=== PATIENT | female | born 1960 | race Two or more races ===

== ENCOUNTER 2018-08-15 04:33 | Emergency (ER) | payer MEDICAID ==
[~2018-08-15] VITALS: Ht 162.6 cm; Wt 99.3 kg
[~2018-08-15 04:33] MED LIST: ESOM40CA39; METO-281; TRIA25CA
[2018-08-15 04:52] VITALS: BP 142/96
== END 2018-08-15 07:52 | disposition home or self-care (01) ==
LOC: ER 04:33
DX: R05 Cough (principal); J45.909 Unspecified asthma, uncomplicated; K21.9 Gastro-esophageal reflux disease without esophagitis; E78.5 Hyperlipidemia, unspecified; I10 Essential (primary) hypertension; Z86.39 Personal history of other endocrine, nutritional and metabolic disease
CPT/HCPCS: 71046

== ENCOUNTER 2024-08-18 09:02 | Day surgery (SDC) | payer MEDICAID ==
[2024-08-16 11:13] LABS: Urine Bacteria None Seen /hpf (None Seen)
[2024-08-16 11:17] LABS: Basophils # (auto) 0.1 10 ^3/uL (0-0.2); Basophils % (auto) 0.9 % (0.0-2.0); Eosinophils # (auto) 0.2 10 ^3/uL (0-0.8); Hematocrit 37.9 % (36.0-46.0); Hemoglobin 12.5 g/dL (12.2-16.2); Lymphocytes # (auto) 1.9 10 ^3/uL (0.4-5.4); Lymphocytes % (auto) 28.2 % (10.0-50.0); Mean Corpuscular Hemoglobin 27.7 pg (28.0-32.0); Mean Corpuscular Volume 83.9 fL (80.0-100.0); Monocytes # (auto) 0.5 10 ^3/uL (0-1.3); Monocytes % (auto) 8.1 % (0.0-12.0); Neutrophils % (auto) 59.8 % (37.0-80.0); Platelet Count (auto) 304 10^3/uL (140-450); Red Blood Cells 4.52 10^6/uL (4.0-5.20); Red Cell Distribution Width 15.2 % (11.8-14.3); White Blood Cell 6.7 10^3/uL (4.4-10.8)
[2024-08-16 11:39] LABS: INR 0.96 (0.9-1.15); Partial Thromboplastin Time 26.8 SEC (24.5-34.5); Prothrombin Time 10.2 sec (9.3-11.8)
[2024-08-16 11:51] LABS: Urine Blood Negative /uL (Negative); Urine Clarity Clear (Clear); Urine Color Yellow (Yellow); Urine Mucus FEW (None Seen); Urine Protein, UAD Negative (Negative); Urine Squamous Epithelial Cell FEW /hpf (<5); Urine Urobilinogen Normal (Negative); Urine WBC 1 /HPF (0-5); Urine pH 5.5 (5.0-9.0)
[2024-08-16 12:23] LABS: Alanine Aminotransferase 23 U/L (7-40); Albumin 4.7 g/dL (3.2-4.8); Alkaline Phosphatase 88 U/L (46-116); Anion Gap 8 (5-15); Aspartate Aminotransferase 18 U/L (13-40); BUN/Creatinine Ratio 16.1 (10.0-20.0); Bilirubin, Total 0.4 mg/dL (0.2-1.0); Blood Urea Nitrogen 14 mg/dL (9-23); Calcium 10.2 mg/dL (8.7-10.4); Carbon Dioxide 27 mmol/L (20-31); Chloride 105 mmol/L (98-107); Potassium 4.1 mmol/L (3.5-5.1); Sodium 140 mmol/L (136-145); Total Protein 7.2 g/dL (5.7-8.2)
[2024-08-16 12:37] LABS: Glucose 112 mg/dL (74-106)
[~2024-08-18] VITALS: Ht 167.6 cm; Wt 99.8 kg
[~2024-08-18 09:02] MED LIST changes: +ALBU2TAB11 PO; +ASPI1TAB20 PO; +BECL40AE11 IN; +DOCU-94 PO; +ERGO400T PO; -ESOM40CA39; +LEVO88TA4 PO; +LOSA-534 PO; +METF500S3 PO; -METO-281; +SIMV5TAB14 PO; -TRIA25CA
[2024-08-18] MEDS ORDERED: MIDAZOLAM HCL 2MG/2ML 2ml VIAL (1mg/ml) ONE (13:06)
[2024-08-18] MEDS ORDERED: fentaNYL CITRATE 100 MCG/2 ML VL ONE (13:06)
[2024-08-18] MEDS ORDERED: PROPOFOL 10 MG/ML 20 ML IV ONE (13:07)
[2024-08-18] MEDS ORDERED: ONDANSETRON HCL 4 MG/2 ML VIAL ONE (13:07)
[2024-08-18] MEDS ORDERED: LIDOCAINE 2% (LOCAL ANESTH.) PF 5ml SDV ONE (13:07)
[2024-08-18] MEDS ORDERED: GLYCOPYRROLATE 0.2 MG/ML 1ML VIAL ONE (13:07)
--- NOTE | 2024-08-18 13:11 | DVHHP2 ---
GI H&P Pre-Op Assessment Date: 08/18/24 Chief complaint: Epigastric pain and nausea and vomiting. Positive fit test and blood stool. HPI: per clinic note Past medical history: per clinic note Past surgical history: per clinic note Family history: per clinic note Physical exam: General: NAD, AAOX3 HEENT: PERRL, no scleral icterus, normal hearing, gums without lesions or bleeding, oropharynx clear without erythema or exudate. Neck: Supple without enlargement of the thyroid, or lymphadenopathy. Chest: Normal size and shape, no tenderness, lung rush clear to auscultation and percussion, nonlabored breathing. Heart: RRR, no murmur Abdomen: non-distended, no tenderness to palpation, +BS, no hepatosplenomegaly Extremities: no edema Neurological: CN II-XII intact, sensation intact in all extremities, 5+ strength in all extremities Skin: No rashes, No jaundice Assessment: -Epigastric pain and nausea and vomiting. Positive fit test and blood stool. Plan: - EGD - Colonoscopy - Risks (bleeding, infection, perforation, reaction to sedation medications and cardiopulmonary arrest) and benefit of the procedure were explained to patient. Patient agrees to undergo the procedure. BECKY GAMBOA MD Aug 18, 2024 13:11
[2024-08-18 14:01] VITALS: TEMP 97.7; O2SAT 100
--- NOTE | 2024-08-18 14:02 | DVHOP2 ---
Operative Report DATE OF OPERATION: 08/18/24 PROCEDURE: Upper Endoscopy. PREOPERATIVE INDICATION: The patient is a 64 -year-old female undergoing endoscopy for epigastric pain, nausea and vomiting. POSTOPERATIVE DIAGNOSES: 1. Duodenitis in the bulb. 2. Gastritis PROCEDURE PERFORMED BY: Dawit Marquez SCOPE: Olympus videoendoscope. ASA CLASS: 3 PREOPERATIVE MEDICATIONS: MAC with Dr Davies PROCEDURE IN DETAIL: After obtaining an informed consent, the patient was placed on left lateral decubitus position. The patient was then sedated with the above medications. A bite block was placed between her teeth. The endoscope was then passed through the oropharynx, into the esophagus, and through the stomach and pylorus up to the second and third part of the duodenum. There was duodenitis in the duodenal bulb. There was gastritis. Gastric bi opsy obtained using cold forceps. The GE junction was normal in appearance at 35 cm. The esophagus was normal in appearance. The endoscope was then withdrawn. The patient tolerated the procedure well without difficulty. COMPLICATIONS : None SPECIMENS: Gastric biopsies DISPOSITION: D/C to home PLAN: 1. Await for biopsy result DAWIT MARQUEZ MD Aug 18, 2024 14:02
--- NOTE | 2024-08-18 14:04 | DVHOP2 ---
Operative Report DATE OF OPERATION: 08/18/24 PROCEDURE: Colonoscopy. PREOPERATIVE INDICATION: The patient is a 64 -year-old female undergoing colonoscopy for blood in the stool positive fit test POSTOPERATIVE DIAGNOSES: 1. 4 mm descending colon polyp was removed with hot snare and retrieved. 2. Proctitis. 3. Colonoscope only reached the right colon due to tortuous colon. PROCEDURE PERFORMED BY: Dawit Marquez M.D. SCOPE: Olympus videocolonoscope. ASA CLASS: 3 PREOPERATIVE MEDICATIONS: MAC with Dr Davies PROCEDURE IN DETAIL: After obtaining an informed consent, the patient was placed on left lateral decubitus position. She was then sedated with the above medications. A rectal examination was performed that was normal. The colonoscope was then passed through the anus into the rectosigmoid and through the descending, transverse, and to the ascending colon. The colonoscope could not be advanced further despite multiple manipulation due to the tortuous colon. There was a 4 mm descending colon polyp was removed with hot snare and retrieved. There was proctitis. Rectal biopsies were obtained with cold biopsy forceps. The colonoscope was then withdrawn. The patient tolerated the procedure well without difficulty. WITHDRAWAL TIME: 7 minutes QUALITY OF THE PREP: [place] Bowel Prep score: 5 COMPLICATIONS : None SPECIMENS: Colon polyp, rectal biopsies DISPOSITION: D/C to home PLAN: 1. Repeat colonoscopy base on biopsy result DAWIT MARQUEZ MD Aug 18, 2024 14:04
--- NOTE | 2024-08-18 14:05 | DVHDS2 ---
Physician Discharge Progress N Final Diagnosis: Gastritis, duodenitis Colon polyp, proctitis Operations or Procedures: Operations or Procedures EGD with biopsy Colonoscopy with snare polypectomy and biopsy Condition on Discharge: Good Disposition: Home Discharge Instructions: Diet: Regular Activity: No Restrictions, As Tolerated Medications: Resume with previous home medication Follow Up Care: Discharge Statement: "Patient was advised to return to the ER or call 911 if any headaches, dizziness, shortness of breath, chest pain, abdominal pain, bleeding, fevers, or worsening of medical condition. Patient was counseled about treatment plan, medications, possible side effects, patientverbalized understanding. All questions were answered to the best of my ability. This discharge took greater then 30 minutes in planning, reviewing documentation, counseling the patient, and discussing with other team members." BECKY GAMBOA MD Aug 18, 2024 14:05
[2024-08-18] MEDS ORDERED: ACCU-CHEK COMFORT CURVE STRIP VI ONE (14:15)
[2024-08-18] MEDS ORDERED: HYDROmorphone HCL 2 MG/ML VL/or syr IV PRN (14:15)
[2024-08-18 14:25] VITALS: BP 120/85; PULSE 89; RESP 16; O2SAT 95
== END 2024-08-18 14:35 | disposition home or self-care (01) ==
LOC: GI 09:02
PROVIDERS: ATTEND Internal Medicine Gastroenterology
DX: R19.5 Other fecal abnormalities (principal); K63.5 Polyp of colon; K51.20 Ulcerative (chronic) proctitis without complications; K29.50 Unspecified chronic gastritis without bleeding; K62.89 Other specified diseases of anus and rectum; R10.13 Epigastric pain; R11.2 Nausea with vomiting, unspecified; K29.70 Gastritis, unspecified, without bleeding; K29.80 Duodenitis without bleeding; I10 Essential (primary) hypertension; J45.909 Unspecified asthma, uncomplicated; E11.9 Type 2 diabetes mellitus without complications; E03.9 Hypothyroidism, unspecified; Z79.84 Long term (current) use of oral hypoglycemic drugs; Z79.890 Hormone replacement therapy; Z79.899 Other long term (current) drug therapy; Z98.891 History of uterine scar from previous surgery
CPT/HCPCS: 36415; 43239; 45380; 45385; 80053; 81001; 82962; 85025; 85610; 85730; 88305; 88342; J2003; J2250; J2405; J2704; J3010; J7030